=== PATIENT | female | born 1950 | race African-American/Black ===

== ENCOUNTER 2016-07-23 04:13 | Inpatient (IN) ==
[2016-07-17 09:47] LABS: MANUAL DIFF NEEDED? NO; URINE MICRO REVIEW NEEDED? NO; URINE SOURCE CLEAN CATCH
[2016-07-17 09:53] LABS: BASO% 1.1 % (0.0-0.8); EOS# 0.29 X1000 (0.0-0.7); EOS% 3.9 % (0.0-10.0); HEMATOCRIT 44.3 % (37.0-47.0); HEMOGLOBIN 14.1 g/dL (12.0-16.0); LYMPH# 3.06 X1000 (1.2-3.4); LYMPH% 41.3 % (20.5-51.1); MCH 29.1 PG (27-31); MCHC 31.8 g/dL (33-37); MCV 91.3 FL (81-99); MONO# 0.56 X1000 (0.11-0.59); MONO% 7.6 % (1.7-9.3); MPV 11.5 FL (7.4-10.4); NEUT% 46.1 % (42.2-75.2); PLT 271 X1000 (130-400); RBC 4.85 XMIL (4.2-5.4)
--- NOTE | 2016-07-17 09:55 | EKG Report ---
Test Performed on : 07/17/2016 09:36:16 AM Test Reason : PAT Blood Pressure : / mmHG Vent. Rate : 074 BPM Atrial Rate : 074 BPM P-R Int : 184 ms QRS Dur : 074 ms QT Int : 366 ms P-R-T Axes : 049 064 058 degrees QTc Int : 406 ms Normal sinus rhythm. Normal ECG When compared with ECG of 29-MAR-2014 09:12, No significant change was found Confirmed by Florinda CID, Ori Trevino ([id number]) on 07/17/2016 5:59:08 PM
[2016-07-17 09:56] LABS: BILIRUBIN URINE NEGATIVE (NEGATIVE); BLOOD URINE NEGATIVE (NEGATIVE); COLOR YELLOW; GLUCOSE URINE NEGATIVE (NEGATIVE); LEUKOCYTES URINE NEGATIVE (NEGATIVE); NITRITE URINE NEGATIVE (NEGATIVE); PROTEIN URINE NEGATIVE (NEGATIVE); SP GRAVITY URINE 1.021; TURBIDITY URINE CLEAR (CLEAR); UROBILINOGEN URINE NORMAL (NORMAL)
[2016-07-17 09:59] LABS: UR EPITHELIAL CELLS <10 /HPF (<10); URINE BACTERIA NEGATIVE /HPF; URINE RBC <10 /HPF (<10); URINE WBC <10 /HPF (<10)
[2016-07-17 10:07] LABS: INR 1.01; PROTIME 10.6 Seconds (9.2-11.7); PTT 26.2 Seconds (22.0-36.0)
[2016-07-17 10:43] LABS: AGAP 12; BUN 14 mg/dL (8-22); CALCIUM 9.2 mg/dL (8.8-10.2); CHLORIDE 100 mmol/L (98-107); COSMO 283; POTASSIUM 4.2 mmol/L (3.5-5.1); SODIUM 142 mmol/L (136-145); TCO2 30 mmol/L (25-35)
[2016-07-23] MEDS ORDERED: ATIVAN PO PRN (06:23)
[2016-07-23] MEDS ORDERED: REGLAN ONE (09:29)
[2016-07-23] MEDS ORDERED: COLACE ONE (09:29)
[2016-07-23] MEDS ORDERED: PEPCID ONE (09:29)
[2016-07-23] MEDS ORDERED: LYRICA ONE (09:29)
[2016-07-23] MEDS ORDERED: CELEBREX ONE (09:30)
[2016-07-23] MEDS ORDERED: LR 1,000 ML ONE ×2 (09:30→13:33)
[2016-07-23] MEDS ORDERED: KEFZOL 2 GM/D5W 2 GM/50 ML IVPB ONE (09:30)
[2016-07-23] MEDS ORDERED: CLAVE SECONDARY SET 11953 ONE (10:59)
[2016-07-23] MEDS ORDERED: TORADOL ONE (10:59)
[2016-07-23] MEDS ORDERED: NEOSPORIN G.U. IRRIGANT ONE (10:59)
[2016-07-23] MEDS ORDERED: CYKLOKAPRON 1,000 MG/NS 1,000 MG/100 ML IVPB ONE (10:59)
[2016-07-23] MEDS ORDERED: EXPAREL 1.3% ONE (10:59)
[2016-07-23] MEDS ORDERED: MARCAINE 0.25% PF/EPI 1:200,000 ONE (10:59)
[2016-07-23] MEDS ORDERED: DURAMORPH ONE (10:59)
[2016-07-23] MEDS ORDERED: SODIUM CHLORIDE 0.9% ONE (10:59)
[2016-07-23 12:18] LABS: URINE MICRO REVIEW NEEDED? NO; URINE SOURCE CATH
[2016-07-23 12:25] LABS: BILIRUBIN URINE NEGATIVE (NEGATIVE); BLOOD URINE NEGATIVE (NEGATIVE); COLOR STRAW; GLUCOSE URINE NEGATIVE (NEGATIVE); LEUKOCYTES URINE NEGATIVE (NEGATIVE); NITRITE URINE NEGATIVE (NEGATIVE); PROTEIN URINE NEGATIVE (NEGATIVE); SP GRAVITY URINE 1.005; TURBIDITY URINE CLEAR (CLEAR); UR EPITHELIAL CELLS <10 /HPF (<10); URINE BACTERIA NEGATIVE /HPF; URINE RBC <10 /HPF (<10); URINE WBC <10 /HPF (<10); UROBILINOGEN URINE NORMAL (NORMAL)
[2016-07-23] MEDS ORDERED: FENTANYL ONE (13:22)
[2016-07-23] MEDS: DILAUDID ONE ×2 (13:25→13:35)
[2016-07-23] MEDS ORDERED: QUELICIN (DOSE) ONE (13:32)
[2016-07-23] MEDS ORDERED: NEOSTIGMINE ONE (13:32)
[2016-07-23] MEDS ORDERED: AMIDATE ONE (13:32)
[2016-07-23] MEDS ORDERED: ZEMURON ONE (13:32)
[2016-07-23] MEDS ORDERED: ZOFRAN ONE (13:32)
[2016-07-23] MEDS ORDERED: OFIRMEV 1000 MG/ISOTONIC SOLN 1,000 MG/100 ML BOTTLE ONE (13:32)
[2016-07-23] MEDS ORDERED: ROBINUL ONE (13:32)
[2016-07-23] MEDS ORDERED: XYLOCAINE-MPF 2% ONE (13:32)
[2016-07-23] MEDS ORDERED: NS 1,000 ML ONE (13:33)
[2016-07-23] MEDS ORDERED: PHENERGAN ONE (13:33)
[2016-07-23] MEDS ORDERED: DECADRON ONE (13:33)
--- NOTE | 2016-07-23 13:43 | OPERATIVE NOTE ---
PROCEDURE DATE: 07/23/2016 PREOPERATIVE DIAGNOSIS: Right glenohumeral arthritis with chronic rotator cuff tear. POSTOPERATIVE DIAGNOSIS: Right glenohumeral arthritis with chronic rotator cuff tear. PROCEDURE: Right reverse shoulder arthroplasty with DePuy Delta Xtend size 10 press-fit stem, a size 42+ 3 humeral cup, 42 eccentric Glenosphere, and a standard Metaglene. SURGEON: Dr. Aly Leong. CLIENT SUPPORT REPRESENTATIVE: MAYUR Canseco. SECOND BILL COLLECTOR: MAYUR Keane and Jamin Roth RN. ANESTHESIA: General. INTRAVENOUS FLUIDS: 1000 mL lactated Ringer's. ESTIMATED BLOOD LOSS: 200 mL. COMPLICATIONS: None. INDICATION: The patient is a 65-year-old female with chronic history of worsening pain and discomfort in the right shoulder. She has had a previous rotator cuff repair many years ago. X- rays revealed evidence of degenerative glenohumeral arthritis with superior migration of the humeral head consistent with a chronic rotator cuff tear. Given patient's findings, recommendation to proceed with right reverse shoulder arthroplasty was offered. Risks and benefits of surgery were explained, including the risks of anesthesia, , bleeding, infection, failure to relieve pain, postoperative stiffness, nerve injury, blood clots, and other imponderables. All questions were answered and the patient and family wished to proceed with surgery. DETAILS OF OPERATION: The patient was taken to the operating room and placed supinely on the operating table. Once adequate anesthesia was obtained, the patient was placed in semi-Jacobsen beach-chair position. The right shoulder was subsequently prepped and draped in usual sterile fashion. A standard deltopectoral incision was made with a skin knife. Medial and lateral skin envelopes were developed. Hemostasis was obtained using electrocautery. The deltopectoral interval was then developed and retractors were placed. The clavipectoral fascia was then elevated. Identification of the subscapularis tendon was then performed and elevation was conducted. The head was then dislocated anteriorly and had findings consistent with significant arthritic changes and a chronic rotator cuff tear. A starting reamer was passed in the intramedullary canal. This was followed up to a size 10. An intramedullary guide was then placed and the proximal humeral head cutting block was pinned in position. The humeral head was then resected. A protective disk was then placed. Attention was turned the glenoid. The patient had significant wear more posteriorly, posterior eccentric wear. A guide was then placed in position with the guide pin. Reaming was then conducted. The central hole was then dilated. Copious irrigation was then performed with antibiotic pulsatile lavage. A standard Metaglene was then placed. Three locking screws were placed and had good purchase on each screw. The most anterior screw had inadequate purchase with the screw and it was removed. There appeared be good stable fixation. The wound was copiously irrigated with antibiotic pulsatile lavage. A 42 eccentric Glenosphere was then placed with the eccentricity placed inferiorly. After this had been performed, attention was then turned to the proximal humerus, where an intramedullary guide was then placed in position and the proximal humerus was then reamed. The intramedullary canal was copiously irrigated with antibiotic pulsatile lavage. The size 10 press-fit humeral stem with the modular MARSHALL coated epiphysis was then impacted into position in approximately 15 degrees of retroversion and had good purchase. A trial cup was then placed, 42+ 3 humeral cup had excellent stability and range of motion. The trial cup was removed. Copious irrigation was then performed once again with antibiotic pulsatile lavage, followed by the 42+ 3 humeral cup. The shoulder was reduced, carried through range of motion, and had excellent stability and range of motion. Exparel was placed in the deep soft tissue as well as subcutaneous tissue. Shoulder was carried through a range of motion, excellent stability and range of motion. The wound was copiously once again with antibiotic pulsatile lavage. A 2-0 Vicryl was used to repair the subcutaneous tissue, followed by running 2-0 Prolene. Benzoin and Steri-Strips applied. Adaptic, sterile 4x4s, ABD pad, and tape were applied to the right shoulder, followed by a sterile immobilizer. All counts correct. Patient tolerated the procedure well and was transferred to the recovery room in stable condition. cc: Aly Leong MD
[2016-07-23] MEDS ORDERED: MILK OF MAGNESIA PO PRN (13:45)
[2016-07-23] MEDS: ZOFRAN PO PRN ×2 (14:31→21:24)
[2016-07-23] MEDS: NEURONTIN PO SCH ×2 (14:35→21:24)
[2016-07-23] MEDS: LIPITOR PO SCH (14:35)
[2016-07-23] MEDS: REQUIP PO SCH (14:35)
[2016-07-23] MEDS: NS 1,000 ML IV SCH (14:36)
[2016-07-23] MEDS: NORCO-10 PO PRN ×2 (14:44→22:46)
--- NOTE | 2016-07-23 15:19 | Diag Imaging Result Document ---
PROCEDURE NAME: SHOULDER 1 VIEW RIGHT - 07/23/2016 RIGHT SHOULDER 1 VIEW: COMPARISON: None. FINDINGS: There has been placement of a right total shoulder arthroplasty. Alignment is anatomic. No hardware fracture or loosening. IMPRESSION: No evidence of complication.
[2016-07-23] MEDS: ADALAT CC PO SCH (16:19)
[2016-07-23] MEDS: LASIX PO SCH ×2 (16:19→16:31)
[2016-07-23] MEDS: MORPHINE IV PRN ×3 (16:26→23:41)
[2016-07-23] MEDS ORDERED: CYKLOKAPRON 1,000 MG in NS 100 ML IV ONE (17:20)
[2016-07-23] MEDS ORDERED: PNEUMOVAX 23 IM ONE (18:00)
[2016-07-23] MEDS: KEFZOL 2 GM/D5W 2 GM/50 ML IVPB IV SCH (18:51)
[2016-07-23] MEDS: COLACE PO SCH (21:24)
[2016-07-23] MEDS: PERIDEX MT SCH (21:24)
[2016-07-23] MEDS ORDERED: BLISTEX MEDICATED BERRY LIP BALM TOP PRN (23:18)
[2016-07-24] MEDS: MORPHINE IV PRN ×5 (01:46→15:17)
[2016-07-24] MEDS: NS 1,000 ML IV SCH ×2 (01:49→17:02)
[2016-07-24] MEDS: KEFZOL 2 GM/D5W 2 GM/50 ML IVPB IV SCH (03:18)
[2016-07-24] MEDS: ZOFRAN PO PRN ×4 (03:23→21:50)
[2016-07-24] MEDS: NORCO-10 PO PRN (04:10)
[2016-07-24 05:58] LABS: HEMATOCRIT 39.4 % (37.0-47.0); HEMOGLOBIN 12.5 g/dL (12.0-16.0)
[2016-07-24 06:12] LABS: AGAP 14; BUN 11 mg/dL (8-22); CALCIUM 8.9 mg/dL (8.8-10.2); CHLORIDE 99 mmol/L (98-107); COSMO 279; SODIUM 140 mmol/L (136-145); TCO2 27 mmol/L (25-35)
[2016-07-24] MEDS: PRILOSEC PO SCH (06:38)
--- NOTE | 2016-07-24 06:41 | PROGRESS NOTE ---
DATE: 07/24/2016 SUBJECTIVE: The patient is a pleasant 65-year-old female who is 1 day status post right reverse total shoulder arthroplasty. The patient has experienced some discomfort through the night. She is currently resting comfortably. OBJECTIVE: On physical exam, her right shoulder dressing is intact. She is grossly neurovascularly intact, able to flex and extend all of her fingers. LABORATORY DATA: Her hemoglobin is 12.5, hematocrit is 39.4. IMPRESSION: Postoperative day number 1, status post right reverse total shoulder arthroplasty. PLAN: At this point, we will hep-lock her IV and discontinue her Pittman and change her dressing. We will also try the patient on meperidine, and see if she might obtain better pain relief. We will mobilize with physical therapy. We will consult delinquency prevention social worker for discharge planning. cc: Aly Leong MD
[2016-07-24] MEDS ORDERED: DECADRON IV ONE (09:00)
[2016-07-24] MEDS: NEURONTIN PO SCH ×2 (09:04→21:51)
[2016-07-24] MEDS: LASIX PO SCH (09:04)
[2016-07-24] MEDS: ADALAT CC PO SCH (09:04)
[2016-07-24] MEDS: COLACE PO SCH ×2 (09:04→21:51)
[2016-07-24] MEDS: LIPITOR PO SCH (09:05)
[2016-07-24] MEDS: DEMEROL PO PRN ×3 (09:05→18:51)
[2016-07-24] MEDS: REQUIP PO SCH (09:08)
[2016-07-24] MEDS: PERIDEX MT SCH ×2 (09:09→21:54)
[2016-07-24] MEDS ORDERED: AMBIEN PO PRN (17:17)
[2016-07-25] MEDS: DEMEROL PO PRN ×2 (02:30→06:18)
[2016-07-25 04:18] VITALS: BP 132/50
[2016-07-25] MEDS: NS 1,000 ML IV SCH (05:34)
[2016-07-25] MEDS: PRILOSEC PO SCH (06:19)
[2016-07-25] MEDS: ZOFRAN PO PRN (06:21)
--- NOTE | 2016-07-25 06:21 | PROGRESS NOTE ---
DATE: 07/25/2016 SUBJECTIVE: The patient is a pleasant 65-year-old female who is 2 days status post right reverse total shoulder arthroplasty. The patient is currently resting comfortably. She has no complaints. OBJECTIVE: On physical exam, her wound looks good and dressing is intact. She is neurovascularly distally and has good corporate real estate manager strength and able to flex all of her fingers. LABORATORY DATA: Her hemoglobin and hematocrit are pending. IMPRESSION: Postoperative day number 2, status post right reverse total shoulder arthroplasty. PLAN: At this point, we will plan on discharging her home. She will be discharged on meperidine. The patient will receive home physical therapy. cc: Aly Leong MD
[2016-07-25 06:24] LABS: HEMOGLOBIN 11.5 g/dL (12.0-16.0)
[2016-07-25] MEDS: LIPITOR PO SCH (08:52)
[2016-07-25] MEDS: LASIX PO SCH (08:52)
[2016-07-25] MEDS: ADALAT CC PO SCH (08:52)
[2016-07-25] MEDS: REQUIP PO SCH (08:52)
[2016-07-25] MEDS: NEURONTIN PO SCH (08:52)
[2016-07-25] MEDS: COLACE PO SCH (08:53)
[2016-07-25] MEDS: PERIDEX MT SCH (08:53)
== END 2016-07-25 10:21 | disposition home health service (06) ==
LOC: SURHOLD 04:13 → 4N 11:07
PROVIDERS: ADMIT Orthopaedic Surgery Adult Reconstructive Orthopaedic Surgery; ATTEND Orthopaedic Surgery Adult Reconstructive Orthopaedic Surgery